=== PATIENT | female | born 1955 | race Caucasian/White ===

== ENCOUNTER 2016-09-27 15:07 | Emergency (ER) | payer OTHER ==
[~2016-09-27] VITALS: Ht 165.1 cm; Wt 63.6 kg
[~2016-09-27 15:07] MED LIST: 12 HOUR DECONG120 M1 PO; CELEXA10 MG PO; CLARITIN10 MG PO; COLACE100 MG PO; COLACE50 MG PO; EPIPEN ADU0.3 MG/0.3 IM; FIORICET WI1 CAPSULE; FIORINAL WITH1 EACH PO; IRON240 MG PO; IRON55 MG PO; MULTIVITAMIN1 EAC2; NEXIUM40 MG PO; PREDNISONE20 MG PO; SENNA8.6 M1 PO; ZANTAC150 MG PO; ZYRTEC10 M2 PO
[2016-09-27] MEDS ORDERED: ULTRAM50 MG PO (18:46)
[2016-09-27 19:20] VITALS: BP 152/68
== END 2016-09-27 19:21 | disposition home or self-care (01) ==
LOC: EME 15:07
DX: S83.91XA Sprain of unspecified site of right knee, initial encounter (principal); W01.0XXA Fall on same level from slipping, tripping and stumbling without subsequent striking against object, initial encounter; Y93.K1 Activity, walking an animal
CPT/HCPCS: 73564; 73590; 99281; 99283

== ENCOUNTER 2016-11-22 11:40 | Emergency (ER) | payer OTHER ==
[~2016-11-22] VITALS: Ht 165.1 cm; Wt 64.0 kg
[~2016-11-22 11:40] MED LIST changes: +ULTRAM50 MG PO
[2016-11-22] MEDS ORDERED: ZOFRAN ODT4 MG PO (14:47)
[2016-11-22 14:56] VITALS: BP 150/58
== END 2016-11-22 15:03 | disposition home or self-care (01) ==
LOC: EME 11:40
DX: R51 Headache (principal); R42 Dizziness and giddiness; R11.2 Nausea with vomiting, unspecified; H53.149 Visual discomfort, unspecified
CPT/HCPCS: 70450; 99281; 99284; J1100; J1885